=== PATIENT | female | born 1945 | race Caucasian/White ===

== ENCOUNTER → 2016-12-31 | Outpatient (CLI) | payer MEDICARE, BC ==
--- NOTE | 2017-01-01 08:24 | MM ---
Reason for exam: screening (asymptomatic). Last mammogram was performed 1 year and 2 months ago. History: Patient is postmenopausal. Took hormonal contraceptives for 12 years. Taking estrogen for 26 years. Physical Findings: A clinical breast exam by your physician is recommended on an annual basis and results should be correlated with mammographic findings. MG 3D Screening Mammo W/Cad Bilateral CC and MLO view(s) were taken. Prior study comparison: November 11, 2015, bilateral MG screening mammo w CAD. November 02, 2014, bilateral MG screening mammo w CAD. The breast tissue is heterogeneously dense. This may lower the sensitivity of mammography. There is no discrete abnormality. ASSESSMENT: Negative, BI-RAD 1 RECOMMENDATION: Routine screening mammogram of both breasts in 1 year.
== END | disposition home or self-care (01) ==
LOC: RADMAMWWP 09:58
PROVIDERS: ATTEND Obstetrics & Gynecology
DX: Z12.31 Encounter for screening mammogram for malignant neoplasm of breast (principal)
CPT/HCPCS: 77063; G0202

== ENCOUNTER → 2018-04-01 | Outpatient (CLI) | payer MEDICARE, BC ==
--- NOTE | 2018-04-01 16:32 | BD ---
EXAMINATION TYPE: MG DEXA axial skeleton. DATE OF EXAM: 04/01/2018 COMPARISON: NONE CLINICAL HISTORY: 72-year-old female screening for osteoporosis Height: 5 FT 4 IN Weight: 187 FRAX RISK QUESTIONS: Secondary Osteoporosis: RISK FACTORS HISTORY OF: Hip Fracture (Right/Left): When: Spine Fracture: When: History of Wrist Fracture: When: Active: YES Postmenopausal woman: PART HYST AGE 36 Take estrogen and/or progesterone medications: ESTRADIAL How lon YEARS MEDICATIONS: Thyroid Medications: SYNTHROID How Lon YEARS Additional Medications: SYNTHROID,MULTI, ESTRADIAL Additional History: EXAM MEASUREMENTS: Bone mineral densitometry was performed using the Uvinum System. Bone mineral density as measured about the Lumbar spine is: ----- L1-L4(G/cm2): 1.447 T Score Values are as follows: ----- L2: 2.0 ----- L3: 2.5 ----- L4: 2.2 ----- L1-L4: 2.2 Bone mineral density has: DECREASED -2.6 % since study of: 2013 Bone mineral density about the R hip (g/cm2): 0.921 Bone mineral density about the L hip (g/cm2): 0.930 T Score values are as follows: -----R Neck: -0.8 -----L Neck: -0.8 -----R Total: 0.0 -----L Total: -0.2 Bone mineral density has: DECREASED -1.4 % since study of: 2013 IMPRESSION: Normal (Values between +1 and -1 indicate normal bone mass). Consider repeating this study in 5 year s or sooner if there is some new clinical indication. NOTE: T-SCORE=SD OF THE YOUNG ADULT MEAN.
--- NOTE | 2018-04-02 10:58 | MM ---
Reason for exam: screening (asymptomatic). Last mammogram was performed 1 year and 3 months ago. History: Patient is postmenopausal. Took hormonal contraceptives for 12 years. Taking estrogen for 26 years. Physical Findings: A clinical breast exam by your physician is recommended on an annual basis and results should be correlated with mammographic findings. MG 3D Screening Mammo W/Cad Bilateral CC and MLO view(s) were taken. Prior study comparison: December 31, 2016, bilateral MG 3d screening mammo w/cad. November 11, 2015, bilateral MG screening mammo w CAD. The breast tissue is heterogeneously dense. This may lower the sensitivity of mammography. No suspicious abnormality. No significant changes when compared with prior studies. ASSESSMENT: Negative, BI-RAD 1 RECOMMENDATION: Routine screening mammogram of both breasts in 1 year.
== END | disposition home or self-care (01) ==
LOC: RADMAMWWP 08:27
PROVIDERS: ATTEND Obstetrics & Gynecology
DX: Z12.31 Encounter for screening mammogram for malignant neoplasm of breast (principal); Z13.820 Encounter for screening for osteoporosis
CPT/HCPCS: 77063; 77067; 77080

== ENCOUNTER → 2019-04-15 | Outpatient (CLI) | payer MEDICARE ==
--- NOTE | 2019-04-16 13:40 | MM ---
Reason for exam: screening (asymptomatic). Last mammogram was performed 1 year ago. History: Patient is postmenopausal. Took hormonal contraceptives for 12 years. Taking estrogen for 26 years. Physical Findings: A clinical breast exam by your physician is recommended on an annual basis and results should be correlated with mammographic findings. MG 3D Screening Mammo W/Cad Bilateral CC and MLO view(s) were taken. Prior study comparison: April 01, 2018, bilateral MG 3d screening mammo w/cad. December 31, 2016, bilateral MG 3d screening mammo w/cad. The breast tissue is heterogeneously dense. This may lower the sensitivity of mammography. No significant changes when compared with prior studies. ASSESSMENT: Benign, BI-RAD 2 RECOMMENDATION: Routine screening mammogram of both breasts in 1 year.
== END | disposition home or self-care (01) ==
LOC: RADMAMWWP 13:45
PROVIDERS: ATTEND Obstetrics & Gynecology
DX: Z12.31 Encounter for screening mammogram for malignant neoplasm of breast (principal)
CPT/HCPCS: 77063; 77067

== ENCOUNTER → 2020-05-25 | Outpatient (CLI) | payer MEDICARE ==
--- NOTE | 2020-05-26 11:12 | MM ---
Reason for exam: screening (asymptomatic). Last mammogram was performed 1 year and 1 month ago. History: Patient is postmenopausal. Took hormonal contraceptives for 12 years. Taking estrogen for 28 years. Physical Findings: A clinical breast exam by your physician is recommended on an annual basis and results should be correlated with mammographic findings. MG 3D Screening Mammo W/Cad Bilateral CC and MLO view(s) were taken. Prior study comparison: April 15, 2019, bilateral MG 3d screening mammo w/cad. April 01, 2018, bilateral MG 3d screening mammo w/cad. The breast tissue is heterogeneously dense. This may lower the sensitivity of mammography. There is no discrete abnormality. No significant changes when compared with prior studies. ASSESSMENT: Negative, BI-RAD 1 RECOMMENDATION: Routine screening mammogram of both breasts in 1 year.
== END | disposition home or self-care (01) ==
LOC: RADMAMWWP 09:43
PROVIDERS: ATTEND Obstetrics & Gynecology
DX: Z12.31 Encounter for screening mammogram for malignant neoplasm of breast (principal)
CPT/HCPCS: 77063; 77067

== ENCOUNTER → 2021-05-30 | Outpatient (CLI) | payer MEDICARE ==
--- NOTE | 2021-06-05 12:00 | MM ---
Reason for exam: screening (asymptomatic). Last mammogram was performed 1 year ago. History: Patient is postmenopausal. Took hormonal contraceptives for 12 years. Taking estrogen for 28 years. Physical Findings: A clinical breast exam by your physician is recommended on an annual basis and results should be correlated with mammographic findings. MG 3D Screening Mammo W/Cad Bilateral CC and MLO view(s) were taken. Prior study comparison: May 25, 2020, bilateral MG 3d screening mammo w/cad. April 15, 2019, bilateral MG 3d screening mammo w/cad. The breast tissue is heterogeneously dense. This may lower the sensitivity of mammography. ASSESSMENT: Benign, BI-RAD 2 RECOMMENDATION: Routine screening mammogram of both breasts in 1 year.
== END | disposition home or self-care (01) ==
LOC: RADMAMWWP 11:14
PROVIDERS: ATTEND Obstetrics & Gynecology
DX: Z12.31 Encounter for screening mammogram for malignant neoplasm of breast (principal); Z78.0 Asymptomatic menopausal state; Z79.3 Long term (current) use of hormonal contraceptives
CPT/HCPCS: 77063; 77067

== ENCOUNTER → 2022-03-28 | Outpatient (CLI) | payer MEDICARE ==
[2022-03-28 18:30] LABS: HCT 49.4 % (37.2-46.3); HGB 15.1 g/dL (12.0-15.0); MCHC 30.6 g/dL (32.0-37.0); MCV 88.2 fL (80.0-97.0); Mean Platelet Volume 10.1 fL (9.5-12.2); NRBC Per 100 WBC 0 /100 WBCS (0.0-0.0); Platelet Count 265 X 10*3/uL (140-440); RDW 13.5 % (11.5-14.5); WBC 9.14 X 10*3/uL (4.50-10.00)
[2022-03-28 20:17] LABS: ALT 19 U/L (8-44); AST 19 U/L (13-35); African American GFR (CKD) 56.9 (60.0-200.0); Albumin 4.6 g/dL (3.8-4.9); Albumin/Globulin Ratio 1.77 (1.60-3.17); Alkaline Phosphatase 91 U/L (41-126); Blood Urea Nitrogen 16.5 mg/dL (9.0-27.0); Calcium 9.8 mg/dL (8.7-10.3); Carbon Dioxide 25.2 mmol/L (20.0-27.5); Chloride 104 mmol/L (96-109); Chol/HDL Ratio 3.81 Ratio; Globulin 2.6 g/dL (1.6-3.3); Glucose 102 mg/dL (70-110); LDL Cholesterol,Calculated 118.3 mg/dL (0.0-131.0); Non-African American GFR(CKD) 49.1 (60.0-200.0); Potassium 4.8 mmol/L (3.5-5.5); Sodium 141 mmol/L (135-145); Total Bilirubin <0.15 mg/dL (0.30-1.20); Total Protein 7.2 g/dL (6.2-8.2)
== END | disposition home or self-care (01) ==
LOC: LABWHC1 10:02
PROVIDERS: ATTEND Family Medicine
DX: Z13.6 Encounter for screening for cardiovascular disorders (principal); E03.9 Hypothyroidism, unspecified; E55.9 Vitamin D deficiency, unspecified
CPT/HCPCS: 36415; 80053; 80061; 82306; 84439; 84443; 84481; 85027

== ENCOUNTER → 2022-06-13 | Outpatient (CLI) | payer MEDICARE ==
--- NOTE | 2022-06-14 10:39 | MM ---
Reason for Exam: Screening (asymptomatic). Last screening mammogram was performed 12 month(s) ago. Patient History: Menarche at age 13. First Full-Term at age 23. Left ovary removed at age 59. Hysterectomy at age 29. Postmenopausal. Currently using Estrogen, for 28 years. Patient used Hormonal Contraceptives for 12 years. Niece had breast cancer, age 30. Risk Values: Lalita 5 year model risk: 1.6%. NCI Lifetime model risk: 3.4%. Prior Study Comparison: 04/15/2019 Bilateral Screening Mammogram, [facility]. 05/25/2020 Bilateral Screening Mammogram, [facility]. 05/30/2021 Bilateral Screening Mammogram, [facility]. Tissue Density: The breast tissue is heterogeneously dense. This may lower the sensitivity of mammography. Analyzed By CAD. Overall Assessment: Negative, BI-RAD 1 Management: Screening Mammogram of both breasts in 1 year. Electronically signed and approved by: Hal Remy DO
== END | disposition home or self-care (01) ==
LOC: RADMAMWWP 16:16
PROVIDERS: ATTEND Obstetrics & Gynecology
DX: Z12.31 Encounter for screening mammogram for malignant neoplasm of breast (principal); Z78.0 Asymptomatic menopausal state; Z80.3 Family history of malignant neoplasm of breast
CPT/HCPCS: 77063; 77067

== ENCOUNTER 2022-10-15 18:49 | Inpatient (IN) | payer MEDICARE ==
[2022-10-15] MEDS ORDERED: ASPIRIN 81 MG PO STA (19:05)
[2022-10-15] MEDS ORDERED: NITROGLYCERIN OINT 1 INCH/GM PACKET TOPICAL STA (19:05)
--- NOTE | 2022-10-15 19:10 | ED ---
General Adult HPI - General Chief complaint: Chest Pain Stated complaint: Chest pain Time Seen by Provider: 10/15/22 18:55 Source: patient, RN notes reviewed, old records reviewed Mode of arrival: ambulatory Limitations: no limitations - History of Present Illness Initial comments: This is a 76-year-old female with advanced emergency department because yesterday she had chest pain that radiated to her back made her diaphoretic and very nauseated. Patient states that last about a half an hour so she went in and saw her family doctor and her troponin was elevated so he sent into the emergency department. Patient states since the pain subsided she has not had any further pain. Patient states currently she is not short of breath or has any chest pain. Patient states she has a strong family history with 2 brothers and a father who have had heart problems. Patient denies any diabetes high blood pressure or high cholesterol. Patient denies any smoking history. Patient denies any leg swelling or calf tenderness. Patient denies any lighthea dedness or dizziness. - Related Data Home Medications Medication Instructions Recorded Confirmed Levothyroxine Sodium [Synthroid] 100 mcg PO DAILY 10/15/22 10/15/22 Sertraline [Zoloft] 25 mg PO DAILY 10/15/22 10/15/22 estradioL 0.5 mg PO HS 10/15/22 10/15/22 Allergies Allergy/AdvReac Type Severity Reaction Status Date / Time No Known Allergies Allergy Verified 10/15/22 20:29 Review of Systems ROS Statement: Those systems with pertinent positive or pertinent negative responses have been documented in the HPI. ROS Other: All systems not noted in ROS Statement are negative. Past Medical History Past Medical History: No Reported History History of Any Multi-Drug Resistant Organisms: None Reported Past Surgical History: No Surgical Hx Reported Past Psychological History: No Psychological Hx Reported Smoking Status: Never smoker Past Alcohol Use History: Rare Past Drug Use History: None Reported General Exam - General Exam Comments Initial Comments: GENERAL: Patient is well-developed and well-nourished. Patient is nontoxic and well- hydrated and is in no acute distress. ENT: Neck is soft and supple. No significant lymphadenopathy is noted. Oropharynx is clear. Moist mucous membranes. Neck has full range of motion without eliciting any pain. EYES: The sclera were anicteric and conjunctiva were pink and moist. Extraocular movements were intact and pupils were equal round and reactive to light. Eyelids were unremarkable. PULMONARY: Unlabored respirations. Good breath sounds bilaterally. No audible rales rhonchi or wheezing was noted. CARDIOVASCULAR: There is a regular rate and rhythm without any murmurs gallops or rubs. ABDOMEN: Soft and nontender with normal bowel sounds. SKIN: Skin is clear with no lesions or rashes and otherwise unremarkable. NEUROLOGIC: Patient is alert and oriented x3. Cranial nerves II through XII are grossly intact. Motor and sensory are also intact. Normal speech, volume and content. Symmetrical smile. MUSCULOSKELETAL: Normal extremities with adequate strength and full range of motion. No lower extremity swelling or edema. No calf tenderness. LYMPHATICS: No significant lymphadenopathy is noted PSYCHIATRIC: Normal psychiatric evaluation. Limitations: no limitations Course Vital Signs 10/15/22 18:53 Temperature 97.5 F L Pulse Rate 106 H Respiratory 18 Rate Blood Pressure 134/80 O2 Sat by Pulse 96 Oximetry Medical Decision Making - Medical Decision Making EKG was interpreted by me it shows a sinus rhythm at 94 bpm WY interval 171 QRS is 79 Q-T intervals 344 QTC is 396. Patient's EKG showed some slight ST segment depression in V1 and V2 and V3. I interpreted the chest x-ray. I saw no acute normalities. There is no infiltrate or pleural effusion. Patient remained chest pain-free throughout her stay however her troponin was mildly elevated so I will be keeping the patient in the hospital. I spoke with sounds physician's he agreed to admit the patient admitted the patient wrote admitting orders and continue troponin checks throughout the night. I consult to cardiology. Because the unstable angina picture and elevated troponin to start the patient on heparin. I continue the heparin Nitropaste and aspirin on the floor. - Lab Data Result diagrams: 10/15/22 19:24 10/15/22 19:24 Lab Results 10/15/22 10/15/22 10/15/22 Range/Units 19:24 19:24 19:24 WBC 9.4 (3.8-10.6) k/uL RBC 5.38 (3.80-5.40) m/uL Hgb 15.3 (11.4-16.0) gm/dL Hct 45.6 (34.0-46.0) % MCV 84.8 (80.0-100.0) fL MCH 28.5 (25.0-35.0) pg MCHC 33.6 (31.0-37.0) g/dL RDW 12.9 (11.5-15.5) % Plt Count 256 (150-450) k/uL MPV 7.9 Neutrophils % 58 % Lymphocytes % 33 % Monocytes % 3 % Eosinophils % 3 % Basophils % 1 % Neutrophils # 5.5 (1.3-7.7) k/uL Lymphocytes # 3.1 (1.0-4.8) k/uL Monocytes # 0.3 (0-1.0) k/uL Eosinophils # 0.3 (0-0.7) k/uL Basophils # 0.1 (0-0.2) k/uL PT 9.9 (9.0-12.0) sec INR 0.9 (<1.2) APTT 24.4 (22.0-30.0) sec Sodium 139 (137-145) mmol/L Potassium 3.7 (3.5-5.1) mmol/L Chloride 105 (98-107) mmol/L Carbon Dioxide 27 (22-30) mmol/L Anion Gap 7 mmol/L BUN 18 H (7-17) mg/dL Creatinine 0.95 (0.52-1.04) mg/dL Est GFR (CKD-EPI)AfAm 68 (>60 ml/min/1.73 sqM) Est GFR (CKD-EPI)NonAf 59 (>60 ml/min/1.73 sqM) Glucose 139 H (74-99) mg/dL Calcium 9.6 (8.4-10.2) mg/dL Magnesium 1.7 (1.6-2.3) mg/dL Total Bilirubin 0.4 (0.2-1.3) mg/dL AST 26 (14-36) U/L ALT 21 (4-34) U/L Alkaline Phosphatase 74 (38-126) U/L Troponin I (0.000-0.034) ng/mL Total Protein 6.9 (6.3-8.2) g/dL Albumin 4.3 (3.5-5.0) g/dL 10/15/22 Range/Units 19:24 WBC (3.8-10.6) k/uL RBC (3.80-5.40) m/uL Hgb (11.4-16.0) gm/dL Hct (34.0-46.0) % MCV (80.0-100.0) fL MCH (25.0-35.0) pg MCHC (31.0-37.0) g/dL RDW (11.5-15.5) % Plt Count (150-450) k/uL MPV Neutrophils % % Lymphocytes % % Monocytes % % Eosinophils % % Basophils % % Neutrophils # (1.3-7.7) k/uL Lymphocytes # (1.0-4.8) k/uL Monocytes # (0-1.0) k/uL Eosinophils # (0-0.7) k/uL Basophils # (0-0.2) k/uL PT (9.0-12.0) sec INR (<1.2) APTT (22.0-30.0) sec Sodium (137-145) mmol/L Potassium (3.5-5.1) mmol/L Chloride (98-107) mmol/L Carbon Dioxide (22-30) mmol/L Anion Gap mmol/L BUN (7-17) mg/dL Creatinine (0.52-1.04) mg/dL Est GFR (CKD-EPI)AfAm (>60 ml/min/1.73 sqM) Est GFR (CKD-EPI)NonAf (>60 ml/min/1.73 sqM) Glucose (74-99) mg/dL Calcium (8.4-10.2) mg/dL Magnesium (1.6-2.3) mg/dL Total Bilirubin (0.2-1.3) mg/dL AST (14-36) U/L ALT (4-34) U/L Alkaline Phosphatase (38-126) U/L Troponin I 0.098 H* (0.000-0.034) ng/mL Total Protein (6.3-8.2) g/dL Albumin (3.5-5.0) g/dL Critical Care Time Critical Care Time: Yes Total Critical Care Time: 35 Disposition Clinical Impression: Unstable angina Disposition: ADMITTED IP TO THIS [facility] Referrals: None,Stated [Primary Care Provider] - 1-2 days Time of Disposition: 20:34
[2022-10-15 19:38] LABS: Basophils # (A) 0.1 k/uL (0-0.2); Basophils % (A) 1 %; Eosinophils # (A) 0.3 k/uL (0-0.7); Eosinophils % (A) 3 %; HCT 45.6 % (34.0-46.0); HGB 15.3 gm/dL (11.4-16.0); Lymphocytes # (A) 3.1 k/uL (1.0-4.8); Lymphocytes % (A) 33 %; MCH 28.5 pg (25.0-35.0); MCHC 33.6 g/dL (31.0-37.0); MCV 84.8 fL (80.0-100.0); Mean Platelet Volume 7.9; Monocytes # (A) 0.3 k/uL (0-1.0); Monocytes % (A) 3 %; Neutrophils # (A) 5.5 k/uL (1.3-7.7); Neutrophils % (A) 58 %; Platelet Count 256 k/uL (150-450); RBC 5.38 m/uL (3.80-5.40); RDW 12.9 % (11.5-15.5); WBC 9.4 k/uL (3.8-10.6)
[2022-10-15 19:47] LABS: INR 0.9 (<1.2); Partial Thromboplastin Time 24.4 sec (22.0-30.0); Prothrombin Time 9.9 sec (9.0-12.0)
[2022-10-15 19:51] LABS: Albumin 4.3 g/dL (3.5-5.0); Calcium 9.6 mg/dL (8.4-10.2); Magnesium 1.7 mg/dL (1.6-2.3); Potassium 3.7 mmol/L (3.5-5.1); Total Bilirubin 0.4 mg/dL (0.2-1.3); Total Protein 6.9 g/dL (6.3-8.2)
--- NOTE | 2022-10-15 20:23 | XR ---
EXAMINATION TYPE: XR chest 2V DATE OF EXAM: 10/15/2022 COMPARISON: NONE HISTORY: Chest pain TECHNIQUE: 2 view FINDINGS: Heart and mediastinum are normal. Lungs are clear. Diaphragm is normal. Bony thorax appears normal. IMPRESSION: Normal chest.
[2022-10-15] MEDS ORDERED: NITROGLYCERIN SL TABS 0.4 MG TAB SUBLINGUAL PRN (20:34)
[2022-10-15] MEDS ORDERED: HEPARIN SOD,PORK IN 0.45% NACL 25,000 UNIT in 0.45% NACL 1 250ML.BAG IV SCH (20:45)
[2022-10-16] MEDS ORDERED: METOPROLOL TARTRATE 50 MG TAB PO STA ×2 (01:35→01:47)
--- NOTE | 2022-10-16 01:36 | P.HPIM ---
History of Present Illness H&P Date: 10/15/22 The patient is 76-year-old female with a PMH of hypothyroidism who presents to the emergency room with complaints of chest pain and shortness of breath. The patient reports that she was in her usual state of health until yesterday evening at dinnertime when she suddenly developed a severe substernal chest discomfort, 10 out of 10, pressure-like, with associated diaphoresis, nausea, shortness of breath, and a single episode of vomiting. The pain persisted for around 45 minutes and then gradually resolved. The patient subsequently went to her PCPs office earlier today where an EKG was performed and the patient was sent for a troponin lab draw. The patient was subsequently contacted at her home by her PCP to inform her that the troponin was elevated and that she needs to go to the emergency room. The patient states that she has not had recurrence of her pain since the episode yesterday. She denied any prior history of heart disease or chest discomfort. Reports a significant family history of heart disease with multiple males dying early heart disease. At time of interview, she reports feeling at her baseline. Patient denied history of tobacco use. Laboratory evaluation revealed a troponin of 0.098, down from 0.127 performed as an outpatient earlier today. EKG had revealed sinus rhythm at 94 bpm with poor R-wave progression, as well as ST segment depression noted in leads V2 to V3. Chest x-ray was unremarkable. Review of systems: Pertinent positives and negatives as discussed in HPI, a complete review of systems was performed and all other systems are negative. Physical examination: General: non toxic, no distress, appears at stated age, obese Derm: no unusual rashes/lesions, warm Head: atraumatic, normocephalic, symmetric Eyes: EOMI, no lid lag, anicteric sclera, pupils equal round reactive to light ENT: Nose and ears atraumatic Neck: No cervical lymphadenopathy, trachea midline, supple Mouth: no lip lesion, mucus membranes moist Cardiovascular: S1S2 reg, no murmur, positive dorsalis pedis pulse bilateral, no edema Lungs: CTA bilateral, no rhonchi, no rales, no accessory muscle use Abdominal: soft, nontender to palpation, no guarding Ext: muscle strength 5 out of 5 in all 4 extremities grossly, no gross muscle atrophy, no contractures, Neuro: CN II-XI grossly intact, no gross focal neuro deficits Psych: Alert, oriented, appropriate affect Assessment/plan Non-ST elevation NE -Continue with heparin infusion -Aspirin, statin -Beta lasha -Trend troponin -Cardiac monitoring -Cardiology consulted -Follow-up lipid panels and A1c -Nitro when necessary DVT prophylaxis -Heparin infusion The patient is admitted with an anticipated greater than 2 midnight stay for evaluation of non-ST elevation NE CODE STATUS: Full Code Discussed with: Patient Anticipated discharge date: 2-[address]: Home Past Medical History Past Medical History: No Reported History History of Any Multi-Drug Resistant Organisms: None Reported Past Surgical History: No Surgical Hx Reported Past Psychological History: No Psychological Hx Reported Smoking Status: Never smoker Past Alcohol Use History: Rare Past Drug Use History: None Reported - Past Family History Brother(s) Family Medical History: Coronary Artery Disease (CAD) Medications and Allergies Home Medications Medication Instructions Recorded Confirmed Type Levothyroxine Sodium [Synthroid] 100 mcg PO DAILY 10/15/22 10/15/22 History Sertraline [Zoloft] 25 mg PO DAILY 10/15/22 10/15/22 History estradioL 0.5 mg PO HS 10/15/22 10/15/22 History Allergies Allergy/AdvReac Type Severity Reaction Status Date / Time No Known Allergies Allergy Verified 10/15/22 20:29 Physical Exam Vitals: Vital Signs Temp Pulse Resp BP Pulse Ox 10/15/22 18:53 97.5 F L 106 H 18 134/80 96 Intake and Output 10/15/22 10/15/22 10/15/22 06:59 14:59 22:59 Other: Weight 81.647 kg Results CBC & Chem 7: 10/15/22 19:24 10/15/22 19:24 Labs: Abnormal Lab Results - Last 24 Hours (Table) 10/15/22 10/15/22 Range/Units 19:24 19:24 BUN 18 H (7-17) mg/dL Glucose 139 H (74-99) mg/dL Troponin I 0.098 H* (0.000-0.034) ng/mL
[2022-10-16 05:13] LABS: Partial Thromboplastin Time 37.7 sec (22.0-30.0); Prothrombin Time 10.4 sec (9.0-12.0)
[2022-10-16] MEDS: ATORVASTATIN 80 MG TAB PO SCH ×2 (07:19→20:10)
[2022-10-16] MEDS: NITROGLYCERIN OINT 1 INCH/GM PACKET TOPICAL SCH ×3 (07:19→14:44)
[2022-10-16] MEDS ORDERED: ALPRAZolam 0.5 MG TAB PO PRN (08:46)
[2022-10-16] MEDS ORDERED: ALPRAZolam 0.25 MG TAB PO PRN (08:46)
[2022-10-16] MEDS ORDERED: ASPIRIN 325 MG TAB PO SCH (09:00)
[2022-10-16] MEDS: SERTRALINE 50 MG TAB PO SCH (09:14)
[2022-10-16] MEDS: LEVOTHYROXINE 100 MCG TAB PO SCH (09:14)
[2022-10-16 09:40] LABS: Glucose,Whole Blood 116 mg/dL (70-110)
[2022-10-16 10:18] LABS: Chol/HDL Ratio 3.93 Ratio; LDL Cholesterol,Calculated 110.5 mg/dL (0.0-131.0)
--- NOTE | 2022-10-16 10:29 | CA ---
Transthoracic Echo Report Name: Aubrie Grant Age: 76 Gender: F : 1945 Exam Date: 10/16/2022 08:15 Exam Location: [facility] Ht (in): 65 Wt (lb): 180 Ordering Physician: Lashonda Kevin Attending/Referring Phys: Manager Of Product Claudine Forbes RDCS Procedure CPT: Indications: chest pain, sob, elevated troponin Cardiac Hx: Technical Quality: Very technically difficult study Contrast 1: Lumason Total Dose (mL): 4 Contrast 2: Total Dose (mL): MEASUREMENTS (Male / Female) Normal Values 2D ECHO LV Diastolic Diameter PLAX 3.5 cm 4.2 - 5.9 / 3.9 - 5.3 cm LV Systolic Diameter PLAX 2.9 cm IVS Diastolic Thickness 1.1 cm 0.6 - 1.0 / 0.6 - 0.9 cm LVPW Diastolic Thickness 1.6 cm 0.6 - 1.0 / 0.6 - 0.9 cm LV Relative Wall Thickness 0.8 RV Internal Dim ED PLAX 2.4 cm M-MODE Aortic Root Diameter MM 3.0 cm LA Systolic Diameter MM 2.7 cm LA Ao Ratio MM 0.9 MV E Point Septal Separation 0.9 cm AV Cusp Separation MM 2.0 cm DOPPLER MV Area PHT 2.1 cm??? Mitral E Point Velocity 44.4 cm/s Mitral A Point Velocity 72.1 cm/s Mitral E to A Ratio 0.6 MV Deceleration Time 363.3 ms MV E' Velocity 4.5 cm/s Mitral E to MV E' Ratio 9.9 FINDINGS Left Ventricle Mildly increased septal wall thickness.left ventricular ejection fraction is estimated at 55%. Right Ventricle Normal right ventricular size and function. Right ventricular systolic pressure within normal limits. Right Atrium Normal right atrial size. Left Atrium Normal left atrial size. Mitral Valve Structurally normal mitral valve. Mild mitral regurgitation. Aortic Valve Aortic valve not well visualized. Tricuspid Valve Structurally normal tricuspid valve. Mild tricuspid regurgitation. Pulmonic Valve Pulmonic valve not well visualized. Pericardium Echo free space anterior to the right ventricle likely represents a fat pad. Aorta Normal size aortic root and proximal ascending aorta. CONCLUSIONS Left ventricular ejection fraction 55% Mild mitral regurgitation Mild tricuspid regurgitation No significantly elevated RVSP No pericardial effusion Previewed by: Dr. Enrique De Leon DO (Electronically Signed) Final Date: 16 October 2022 10:28
[2022-10-16] MEDS ORDERED: IV FLUID CONTINUATION 900 ML IV ONE (10:47)
[2022-10-16] MEDS: MIDAZOLAM 2 MG/2 ML VIAL IV ONE ×2 (11:08→11:16)
[2022-10-16] MEDS ORDERED: HEPARIN SODIUM 1,000 UN/ML (10ML VL) ONE (11:13)
[2022-10-16] MEDS ORDERED: LIDOCAINE 1% INJ 10MG/ML (30 ML VIAL-PF) SQ ONE ×2 (11:16→11:17)
[2022-10-16] MEDS ORDERED: VERAPAMIL SYRINGE (5 MG/10 ML) INTRAARTER ONE (11:23)
[2022-10-16] MEDS ORDERED: HYDROmorphone 0.5 MG/0.5 ML SYRINGE IVP ONE ×4 (11:25→12:34)
[2022-10-16] MEDS: HEPARIN SODIUM 1,000 UN/ML (10ML VL) IV ONE ×3 (11:28→12:29)
--- NOTE | 2022-10-16 11:31 | P.CRDCN ---
History of Present Illness History of present illness: This is a 76 year old female with a past medical history of hypothyroidism, family history of coronary artery disease. She does not follow with a continuous improvement lead. We are consulted for chest pain and abnormal troponin. She presents to the ER with complaints of chest pain. Patient states yesterday evening she had symptoms of chest pressure in the center of her chest radiating to her back. Rates it 10/10, intense pressure. She had associated shortness of breath, nausea, vomiting episode and diaphoresis. She took an aspirin, no relief. Within 1 hour her symptoms resolved. She went to see her PCP and was told to go to the emergency department secondary to elevated troponins. She is currently chest pain free. Denies any shortness of breath, lightheadedness, dizziness or palpitations. She denies any history of CAD, DC, stroke, diabetes, hypertension, dyslipidemia. Family history includes her father had CABG in his 40s and stenting, other brother also had an DC, Father had an DC in his 60s. She denies tobacco use. DIAGNOSTICS * EKG reveals sinus rhythm, HR 94, mild ST depression in inferior and lateral leads * Telemetry tracings indicate sinus rhythm * Echocardiogram revealed EF 55%, mild mitral regurgitation, mild tricuspid regurgitation * Chest xray no acute cardiopulmonary process * Laboratory reviewed, sodium 139, potassium 3.7, BUN 18, serum crit 0.9, magnesium 1.7, troponin 0.09, 0.10, 2.09, TSH within normal limits, Triglycerides 141, cholesterol 186, LDL 110, HDL 47, CBC unremarkable * Current home medications include Synthroid, zoloft, estradiol REVIEW OF SYSTEMS At the time of my exam: CONSTITUTIONAL: Denies fever or chills. CARDIOVASCULAR: + chest pain, +shortness of breath, Denies orthopnea, PND or palpitations. RESPIRATORY: Denies cough. GASTROINTESTINAL: Denies abdominal pain, diarrhea, constipation, +nausea +vomiting. MUSCULOSKELETAL: Denies myalgias. NEUROLOGIC: Denies numbness, tingling, headacbe or weakness. ENDOCRINE: Denies fatigue, weight change, polydipsia or polyurina. GENITOURINARY: Denies burning, hematuria or urgency with micturation. HEMATOLOGIC: Denies history of anemia or bleeding. PHYSICAL EXAMINATION Blood pressure 119/93, heart rate 87, afebrile, oxygen saturation 96% on room air CONSTITUTIONAL: No apparent distress. HEENT: Head is normocephalic. Pupils are equal, round. Sclerae anicteric. Mucous membranes of the mouth are moist. No JVD. No carotid bruit. CHEST EXAMINATION: Lungs are clear to auscultation. No chest wall tenderness is noted on palpation or with deep breathing. HEART EXAMINATION: Regular rate and rhythm. S1, S2 heard. No murmurs, gallops or rub. ABDOMEN: Soft, nontender. Positive bowel sounds. EXTREMITIES: 2+ peripheral pulses, no lower extremity edema and no calf tenderness. NEUROLOGIC EXAMINATION: Patient is awake, alert and oriented x3. ASSESSMENT NSTEMI History of hypothyroidism Family history of coronary artery disease PLAN Echocardiogram reviewed Continue IV Heparin, aspirin, statin Plan for cardiac catheterization today with Dr. Rowe, patient is agreeable I have discussed the risks, benefits and alternative therapies for the above- mentioned procedure and for both sedation/analgesia as well as necessary blood product administration, if indicated, as they pertain to this patient. The patient has indicated understanding and acceptance of the risks and procedures discussed. Questions have been answered appropriately and she is agreeable to move forward with the above-stated procedure. Further recommendations based on clinical course Nurse practitioner note has been reviewed by physician. Signing provider agrees with the documented findings, assessment, and plan of care. Past Medical History Past Medical History: No Reported History History of Any Multi-Drug Resistant Organisms: None Reported Past Surgical History: No Surgical Hx Reported Past Psychological History: No Psychological Hx Reported Smoking Status: Never smoker Past Alcohol Use History: Rare Past Drug Use History: None Reported - Past Family History Brother(s) Family Medical History: Coronary Artery Disease (CAD) Medications and Allergies Home Medications Medication Instructions Recorded Confirmed Type Levothyroxine Sodium [Synthroid] 100 mcg PO DAILY 10/15/22 10/15/22 History Sertraline [Zoloft] 25 mg PO DAILY 10/15/22 10/15/22 History estradioL 0.5 mg PO HS 10/15/22 10/15/22 History Allergies Allergy/AdvReac Type Severity Reaction Status Date / Time No Known Allergies Allergy Verified 10/15/22 20:29 Physical Exam Vitals: Vital Signs Temp Pulse Resp BP Pulse Ox 10/16/22 03:28 62 19 99 10/15/22 18:53 97.5 F L 106 H 18 134/80 96 Intake and Output 10/15/22 10/16/22 10/16/22 22:59 06:59 14:59 Other: Weight 81.647 kg Results 10/15/22 19:24 10/15/22 19:24 Cardiac Enzymes 10/15/22 10/15/22 10/15/22 Range/Units 19:24 19:24 22:39 AST 26 (14-36) U/L Troponin I 0.098 H* 0.108 H* (0.000-0.034) ng/mL 10/16/22 Range/Units 01:16 AST (14-36) U/L Troponin I 0.096 H* (0.000-0.034) ng/mL Coagulation 10/15/22 10/16/22 Range/Units 19:24 04:39 PT 9.9 10.4 (9.0-12.0) sec APTT 24.4 37.7 H (22.0-30.0) sec CBC 10/15/22 Range/Units 19:24 WBC 9.4 (3.8-10.6) k/uL RBC 5.38 (3.80-5.40) m/uL Hgb 15.3 (11.4-16.0) gm/dL Hct 45.6 (34.0-46.0) % Plt Count 256 (150-450) k/uL Comprehensive Metabolic Panel 10/15/22 Range/Units 19:24 Sodium 139 (137-145) mmol/L Potassium 3.7 (3.5-5.1) mmol/L Chloride 105 (98-107) mmol/L Carbon Dioxide 27 (22-30) mmol/L BUN 18 H (7-17) mg/dL Creatinine 0.95 (0.52-1.04) mg/dL Glucose 139 H (74-99) mg/dL Calcium 9.6 (8.4-10.2) mg/dL AST 26 (14-36) U/L ALT 21 (4-34) U/L Alkaline Phosphatase 74 (38-126) U/L Total Protein 6.9 (6.3-8.2) g/dL Albumin 4.3 (3.5-5.0) g/dL Current Medications Generic Name Dose Route Start Last Admin Trade Name Freq PRN Reason Stop Dose Admin Aspirin 325 mg 10/16/22 09:00 Aspirin 325 Mg Tab PO DAILY [facility] Atorvastatin Calcium 80 mg 10/16/22 01:34 10/16/22 07:19 Atorvastatin 80 Mg Tab PO Not Given HS [facility] Estradiol 0.5 mg 10/15/22 21:00 10/16/22 07:19 Estradiol 0.5 Mg Tab PO Not Given HS [facility] Heparin Sodium/Sodium Chloride 250 mls @ 9.798 mls/hr 10/15/22 20:45 10/15/22 22:35 25,000 unit/ Sodium Chloride IV 12 units/kg/hr .Q24H [place] 9.798 mls/hr Administration Protocol 12 UNITS/KG/HR Levothyroxine Sodium 100 mcg 10/16/22 06:30 Levothyroxine 100 Mcg Tab PO DAILY@0630 [facility] Nitroglycerin 0.4 mg 10/15/22 20:34 Nitroglycerin Sl Tabs 0.4 Mg Tab SUBLINGUAL Q5M PRN Chest Pain Nitroglycerin 1 inch 10/16/22 00:00 10/16/22 07:19 Nitroglycerin Oint 1 Inch/Gm Packet TOPICAL Not Given Q6HR [facility] Sertraline HCl 25 mg 10/16/22 09:00 Sertraline 50 Mg Tab PO DAILY [facility] Intake and Output 10/15/22 10/16/22 10/16/22 22:59 06:59 14:59 Other: Weight 81.647 kg 10/15/22 19:24 10/15/22 19:24
--- NOTE | 2022-10-16 11:45 | P.PN ---
Subjective Progress Note Date: 10/16/22 Hospital course: Patient is a very pleasant 76-year-old female with a past medical history of hypothyroidism. She presented to the emergency department with a chief complaint of chest pain/pressure and shortness of breath. Patient reports that this began on Saturday and initially began with the sudden onset of severe nausea stating it was like the worst case of morning sickness 10 followed by one episode of emesis consisting strictly bile followed by severe pain/pressure to her midsternal chest radiating into her back accompanied by diaphoresis. Patient reports she took an aspirin and rested and pain seemed to go away but had consistently been waxing and waning over the past couple days. Patient underwent full evaluation in the emergency department. CBC, coags, and CMP s howing no significant abnormalities. Troponin elevated at 0.098. EKG showing sinus rhythm and [address] depression in inferior and lateral leads. Chest x-ray negative for acute cardiopulmonary process. Patient was started on IV heparin infusion and admitted under our services with consultation to cardiology. Troponins trended overnight resulting at 0.098, 0.108, and 0.096. Physical exam: Patient seen and fully evaluated at the bedside this morning. Patient currently reports a soreness to her chest but reports the chest pain and shortness of breath she was previously experiencing has resolved. Patient remains on heparin infusion and preparing to be taken down for cardiac catheterization. Vital signs reviewed and stable. General: Nontoxic, no distress and appears stated age. Derm: Skin warm and dry, normal coloration for ethnicity. Head: Atraumatic, normocephalic and symmetric. Eyes: EOMs intact, no lid lag, and anicteric sclera Mouth: no lip lesions, mucus membranes moist Cardiovascular: regular rate and rhythm with normal S1S2 soft systolic murmur, positive posterior tibial pulses bilaterally, and cap refill < 2 seconds. Lungs: Respirations even, regular, and unlabored on room air. Lungs CTA bilaterally, no rhonchi, no rales, no wheezing, and no accessory muscle usage. Abdominal: soft, nontender to palpation, no guarding, no appreciable organomeg jazmin Ext: ROM intact. No gross muscle atrophy, no edema, no contractures Neuro: Speech clear, face symmetrical and CN II-XII grossly intact with no noted focal neuro deficits Psych: Alert and oriented to person, place, time, and situation. Appropriate and pleasant affect. Assessment and Plan of Care: NSTEMI -Cardiology following, patient to undergo cardiac catheterization later today -Telemetry monitoring -Continue heparin infusion -May resume Cardiac diet upon return from cardiac cath -Continue Aspirin, atorvastatin, losartan and metoprolol -Lipid profile with a.m. labs. -Echocardiogram revealing EF of 55% with mild mitral and tricuspid regurgitation. Hypothyroidism -Continue daily medication regimen with levothyroxine. CODE STATUS: Full code DVT prophylaxis: Heparin Discussed with: Patient, patient's , and RN Anticipated discharge date: Clinical course to determine Anticipated discharge place: Home A total of 38 minutes was spent on the care of this complex patient more than 50% of the time was spent in counseling and care coordination. I reviewed the documentation as provided by the KAYLEE above, who is the original author of this note. I agree with the documented assessment and plan, with the following changes: none Objective - Vital Signs Vital signs: Vital Signs Temp 97.5 F L 10/15/22 18:53 Pulse 85 10/16/22 08:00 Resp 18 10/16/22 08:00 BP 105/69 10/16/22 08:00 Pulse Ox 95 10/16/22 08:00 FiO2 Intake & Output 10/15/22 10/16/22 10/16/22 18:59 06:59 18:59 Weight 81.647 kg - Labs CBC & Chem 7: 10/15/22 19:24 10/15/22 19:24 Labs: Abnormal Lab Results - Last 24 Hours (Table) 10/15/22 10/15/22 10/15/22 Range/Units 19:24 19:24 22:39 APTT (22.0-30.0) sec BUN 18 H (7-17) mg/dL Glucose 139 H (74-99) mg/dL Troponin I 0.098 H* 0.108 H* (0.000-0.034) ng/mL 10/16/22 10/16/22 Range/Units 01:16 04:39 APTT 37.7 H (22.0-30.0) sec BUN (7-17) mg/dL Glucose (74-99) mg/dL Troponin I 0.096 H* (0.000-0.034) ng/mL
[2022-10-16] MEDS ORDERED: IOPAMIDOL-370 100ML BTL INJ ONE ×2 (12:02→12:22)
[2022-10-16] MEDS ORDERED: ONDANSETRON 4 MG/2 ML VIAL ONE (12:05)
[2022-10-16] MEDS ORDERED: ONDANSETRON 4 MG/2 ML VIAL IVP ONE (12:06)
[2022-10-16] MEDS ORDERED: NITROGLYCERIN 1000MCG/10ML SYRINGE INTRACORON ONE (12:14)
[2022-10-16] MEDS ORDERED: METOPROLOL TARTRATE 5 MG/5 ML VIAL IVP ONE ×2 (12:32→12:37)
[2022-10-16] MEDS ORDERED: IOPAMIDOL-370 125ML BTL INJ ONE (12:37)
[2022-10-16] MEDS ORDERED: CLOPIDOGREL 75 MG TAB ONE (12:39)
[2022-10-16] MEDS ORDERED: CLOPIDOGREL 75 MG TAB PO ONE (12:40)
[2022-10-16] MEDS ORDERED: SODIUM CHLORIDE 0.9% 1,000 ML IV STA (12:42)
[2022-10-16] MEDS ORDERED: ZOLPIDEM 5 MG TAB PO PRN (12:43)
[2022-10-16] MEDS ORDERED: RX INFO: IV CONTRAST WAS GIVEN 1 EACH MISC MISCELLANE PRN (12:43)
[2022-10-16] MEDS ORDERED: MAG HYDROX/AL HYDROX/SIMETH 30 ML CUP PO PRN (12:43)
[2022-10-16] MEDS ORDERED: ATROPINE SULFATE 0.1 MG/ML 10ML SYRINGE IV PRN (12:43)
--- NOTE | 2022-10-16 13:55 | CC ---
CARDIAC CATHETERIZATION REPORT DATE OF SERVICE: 10/15/2022. PROCEDURES PERFORMED: 1. Left heart catheterization and coronary angiography. 2. Percutaneous transluminal coronary angioplasty and stenting of mid left anterior descending with a drug-eluting stent. 3. Percutaneous transluminal coronary angioplasty and stenting of proximal major diagonal branch with a drug-eluting stent. PERFORMED BY: Dr. Trudy Rowe. Moderate conscious sedation time was 1 hour and 20 minutes. The patient was administered Versed and Dilaudid. Oxygen saturation, hemodynamics, and EKG were monitored closely. CLINICAL INFORMATION: Ms. Aubrie Grant is a 76-year-old lady with a history of hypothyroidism, who has not seen a primary care physician recently. She came into the hospital with episode of chest pain and had troponin elevation suggestive of [id number] without significant EKG changes. She was seen and evaluated by Dr. Higgins, who advised cardiac catheterization. I saw the patient in the catheterization lab. Discussed with her the rationale, risks, benefits and options. She understood all details and wished to proceed with the procedure. PROCEDURE NOTE: Under local anesthesia and strict aseptic precautions, a 6-Greek introducer was placed in the right radial artery. Using a JL3.5 and JR4 catheters, I performed coronary angiography, and same right catheter was used to check LV pressure, but LV-gram was not performed. Following this, I performed stenting of LAD and also major diagonal branch because of significant lesion. The patient also had a circumflex lesion, which will be addressed later on. Following the PCI procedure, the sheath was taken out, and a TR band was applied as per protocol with saturation in the fingers of the right hand of 97%. The patient received intravenous heparin of about 6000 units. ACT was kept between 250 and 300. Initial one was 281, the end of the procedure was 253. She also received 600 mg of Plavix. CARDIAC CATHETERIZATION FINDINGS: The left ventricular end-diastolic pressure was about 10 mmHg without any gradient across aortic valve. CORONARY ANGIOGRAPHY FINDINGS: RIGHT CORONARY ARTERY: Large dominant vessel. Proximal portion with a 35% lesion. It is very tortuous and distally bifurcates into large PDA and PLV, both of which supply a sizable amount of myocardium. Proximal RCA has about a 35% plaque, but the rest of the RCA looks very good and distally bifurcates into 2 good-sized PDA and PLV branches. No other significant disease. LEFT MAIN CORONARY ARTERY: Short, patent vessel, free of significant disease, bifurcates into LAD and circumflex. LEFT ANTERIOR DESCENDING CORONARY ARTERY: Good-caliber vessel, extends along the anterior wall, proximal 35% lesion, gives off a good-sized diagonal branch that has a 95% stenosis in the body and a 50% in the ostium. It bifurcates into 2 branches. It is about a 2.25-caliber vessel. LAD after the diagonal branch is highly diseased as a long area of disease, and from the diseased area comes off a septal branch, and there is a focal 95% stenosis in the LAD at the origin of the septal branch. Beyond the long area of disease, the caliber improves and vessel runs all the way to the apex and supplies a sizable amount of myocardium. This is a large distribution LAD and has significant disease in the proximal portion and the diagonal branch and mid LAD long area of disease. LEFT POSTERIOR CIRCUMFLEX CORONARY ARTERY: Nondominant vessel, gives off a high first obtuse marginal branch that has an eccentric 75% to 80% lesion and very tortuous beyond the lesion, and then there is an AV groove branch that has a 60% lesion, runs into the AV groove and a left atrial circumflex branch. Circumflex marginal, therefore, has 80% proximal lesion as it comes off from the main circumflex coronary artery, and this is a nondominant circumflex. Left ventriculogram was not performed. FINAL IMPRESSION: This patient has a right-dominant system, normal filling pressures, and no gradient across aortic valve. Left anterior descending has a long area of disease with a 95% mid lesion, and diagonal also has a 95% lesion in the body of the vessel. Circumflex has 85% in the circumflex marginal. Right coronary artery has about a 35% proximal plaque. RECOMMENDATIONS: I recommended intervention of the LAD and proceeded to perform this in the same setting. PCI PROCEDURE DETAILS: Initially, I tried a JL4, then switched to a JL3.5 guide catheter and a Runthrough wire. Wire was kept distally in the LAD. Predilatation was performed with a 2.5- caliber, 12-mm NC Trek balloon, and I then tried to advance a long stent, but I had difficulty. I then switched over to a 20-mm long, 3.0-caliber NC Trek balloon. With this, I predilated the entire segment, and then I deployed a 33-mm long, 3.5- caliber Xience stent that started off right after the diagonal branch and extended into the lesion almost beyond the mid LAD area. Excellent angiographic result was achieved, but the patient had a septal branch that was totally occluded, and this caused some chest pain without EKG changes. I then turned my attention to the diagonal branch. The same wire was advanced and positioned in the diagonal vessel. Using a 2.25-caliber NC Trek 12-mm balloon, I predilated the lesion from the ostium to the proximal portion. I then deployed a 2.25-caliber, 18-mm long Xience stent into the diagonal branch, and the proximal portion of the stent was placed at the ostium. Excellent angiographic result was achieved. I then went back with a 3.5-caliber NC Trek balloon of 8-mm length and dilated the proximal portion of the LAD stent. Excellent angiographic result was achieved. The patient had chest pain and precordial ST elevation with LAD dilatations. The patient had mild chest discomfort at the end of the procedure. She was hemodynamically stable. The small septal branch was occluded. Excellent angiographic result was achieved of both the LAD and diagonal. Results were discussed with the patient and family, and she was sent to the room in a stable condition. Circumflex intervention will be performed at a later date. Patient will be on Aspirin and Plavix without interruption fo one year. ESPERANZA / JOCELYN: [id number] / MTDD
[2022-10-16] MEDS: SODIUM CHLORIDE 0.9% 1,000 ML in EMPTY BAG 1 BAG IV SCH (14:40)
[2022-10-16] MEDS: METOPROLOL TARTRATE 25 MG TAB PO SCH (20:10)
[2022-10-16] MEDS ORDERED: ACETAMINOPHEN TAB 325 MG TAB PO PRN (20:40)
[2022-10-16] MEDS ORDERED: ONDANSETRON 4 MG/2 ML VIAL IVP STA (21:27)
[2022-10-17] MEDS: LEVOTHYROXINE 100 MCG TAB PO SCH (06:30)
[2022-10-17] MEDS ORDERED: HEPARIN SODIUM,PORCINE 10,000 UNIT in SODIUM CHLORIDE 0.9% 1,000 ML IRRIGATION PRN (07:00)
[2022-10-17] MEDS ORDERED: HEPARIN SODIUM,PORCINE 2,500 UNIT in SODIUM CHLORIDE 0.9% 250 ML IRRIGATION PRN (07:00)
[2022-10-17] MEDS: SODIUM CHLORIDE 0.9% 1,000 ML in EMPTY BAG 1 BAG IV SCH ×2 (07:35→08:19)
[2022-10-17 08:26] LABS: Basophils % (A) 0 %; Eosinophils # (A) 0.1 k/uL (0-0.7); Eosinophils % (A) 1 %; HCT 41.6 % (34.0-46.0); HGB 14.1 gm/dL (11.4-16.0); Lymphocytes # (A) 2.3 k/uL (1.0-4.8); Lymphocytes % (A) 16 %; MCH 28.8 pg (25.0-35.0); MCHC 33.8 g/dL (31.0-37.0); MCV 85.3 fL (80.0-100.0); Mean Platelet Volume 7.9; Monocytes # (A) 0.7 k/uL (0-1.0); Monocytes % (A) 4 %; Neutrophils # (A) 11.5 k/uL (1.3-7.7); Neutrophils % (A) 78 %; Platelet Count 238 k/uL (150-450); RBC 4.88 m/uL (3.80-5.40); RDW 13.1 % (11.5-15.5); WBC 14.8 k/uL (3.8-10.6)
[2022-10-17] MEDS: ASPIRIN 81 MG PO SCH (08:27)
[2022-10-17] MEDS: METOPROLOL TARTRATE 25 MG TAB PO SCH (08:27)
[2022-10-17] MEDS: CLOPIDOGREL 75 MG TAB PO SCH (08:27)
[2022-10-17] MEDS: SERTRALINE 50 MG TAB PO SCH (08:27)
[2022-10-17] MEDS ORDERED: LOSARTAN 25 MG TAB PO STA (08:31)
[2022-10-17] MEDS ORDERED: METOPROLOL TARTRATE 25 MG TAB PO STA (08:32)
[2022-10-17 08:36] LABS: Calcium 8.5 mg/dL (8.4-10.2); Potassium 3.9 mmol/L (3.5-5.1)
[2022-10-17] MEDS ORDERED: LOSARTAN 25 MG TAB PO SCH (09:00)
--- NOTE | 2022-10-17 11:40 | P.PN ---
Subjective This is a 76 year old female with a past medical history of hypothyroidism, family history of coronary artery disease. She does not follow with a car diologist. We are consulted for chest pain and abnormal troponin. She presents to the ER with complaints of chest pain. Patient states yesterday evening she had symptoms of chest pressure in the center of her chest radiating to her back. Rates it 10/10, intense pressure. She had associated shortness of breath, nausea, vomiting episode and diaphoresis. She took an aspirin, no relief. Within 1 hour her symptoms resolved. She went to see her PCP and was told to go to the emergency department secondary to elevated troponins. She is currently chest pain free. Denies any shortness of breath, lightheadedness, dizziness or palpitations. She denies any history of CAD, MT, stroke, diabetes, hyperten mayank, dyslipidemia. Family history includes her father had CABG in his 40s and stenting, other brother also had an MT, Father had an MT in his 60s. She denies tobacco use. 10/16 Patient underwent cardiac catheterization with Dr. Rowe and underwent PCI to mid LAD and proximal major diagonal branch. Echocardiogram revealed EF of 55%, mild mitral regurgitation, mild tricuspid regurgitation 10/17/2022 Patient seen and examined at bedside, denies any chest pain or shortness of breath. Main complaint is feeling fatigued. Blood pressure 151/77, heart rate 67, afebrile, oxygen saturation is 97% on room air. BUN 13, serum creatinine 0.7 PHYSICAL EXAMINATION Vitals reviewed CONSTITUTIONAL: No apparent distress. HEENT: Neck Supple. No JVD. No carotid bruit. CHEST EXAMINATION: Lungs are clear to auscultation. No chest wall tenderness is noted on palpation or with deep breathing. HEART EXAMINATION: Regular rate and rhythm. S1, S2 heard. No murmurs, gallops or rub. ABDOMEN: Soft, nontender. Positive bowel sounds. EXTREMITIES: 2+ peripheral pulses, no lower extremity edema and no calf tenderness. Right radial cath site, clean dry 2+ pulses, no edema or hematoma noted NEUROLOGIC EXAMINATION: Patient is awake, alert and oriented x3. ASSESSMENT NSTEMI s/p PCI to mid LAD and proximal major diagonal branch on 10/16/2022 History of hypothyroidism Family history of coronary artery disease PLAN Increase losartan 25mg daily Increase metoprolol tartrate 50mg BID Continue dual antiplatelet therapy with aspirin and Plavix and continue statin Increase activity as tolerated Hopefully discharge in the next 24 hours Further recommendations based on clinical course Nurse practitioner note has been reviewed by physician. Signing provider agrees with the documented findings, assessment, and plan of care. Objective - Vital Signs Vital signs: Vital Signs Temp 98.1 F 10/17/22 08:00 Pulse 67 10/17/22 08:00 Resp 18 10/17/22 11:03 BP 151/77 10/17/22 08:00 Pulse Ox 97 10/17/22 08:40 FiO2 21 10/16/22 21:43 Intake & Output 10/16/22 10/17/22 10/17/22 18:59 06:59 18:59 Intake Total 600 118 Output Total 300 Balance 600 -300 118 Weight 91 kg Intake: IV 600 Oral 118 Output: Emesis 300 Other: Voiding Method Toilet # Voids 1 - Labs CBC & Chem 7: 10/17/22 08:08 10/17/22 08:08 Labs: Abnormal Lab Results - Last 24 Hours (Table) 10/17/22 10/17/22 Range/Units 08:08 08:08 WBC 14.8 H (3.8-10.6) k/uL Neutrophils # 11.5 H (1.3-7.7) k/uL Sodium 136 L (137-145) mmol/L Carbon Dioxide 21 L (22-30) mmol/L Glucose 150 H (74-99) mg/dL
--- NOTE | 2022-10-17 11:51 | P.PN ---
Subjective Progress Note Date: 10/17/22 Principal diagnosis: chest pain Hospital Course: Patient is a very pleasant 76-year-old female with a past medical history of hypothyroidism. She presented to the emergency department with a chief complaint of chest pain/pressure and shortness of breath. Patient reports that this began on Saturday and initially began with the sudden onset of severe nausea stating it was like the worst case of morning sickness 10 followed by one episode of emesis consisting strictly bile followed by severe pain/pressure to her midsternal chest radiating into her back accompanied by diaphoresis. Patient reports she took an aspirin and rested and pain seemed to go away but had consistently been waxing and waning over the past couple days. Patient underwent full evaluation in the emergency department. CBC, coags, and CMP showing no significant abnormalities. Troponin elevated at 0.098. EKG showing sinus rhythm and [address] depression in inferior and lateral leads. Chest x-ray negative for acute cardiopulmonary process. Patient was started on IV heparin infusion and admitted under our services with consultation to cardiology. Patient underwent cardiac catheterization, with PCI to mid LAD and proximal major diagonal branch. Echocardiogram revealed EF of 55%, mild TR and MR. Subjective: Patient seen and examined by mikayla hudson acute events overnight. She is still having some chest pressure mostly with exertion. She denies any shortness of breath, abdominal pain, diarrhea, constipation, or urinary complaints. She occasionally does get nauseated as well. Pertinent positives and negatives as discussed above, a complete review of syst ems was performed and all other systems are negative. Vitals Signs Reviewed. General: nontoxic, no distress, appears at stated age Derm: warm, dry Head: atraumatic, normocephalic, symmetric Eyes: EOMI, no lid lag, anicteric sclera Mouth: no lip lesion, mucus membranes moist Cardiovascular: S1S2 reg, no murmur Lungs: CTA bilateral, no rhonchi, no rales , no accessory muscle use Abdominal: soft, nontender to palpation, no guarding, no appreciable organomegaly Ext: no gross muscle atrophy, no edema, no contractures Neuro: CN II-XI grossly intact, no focal neuro deficits Psych: Alert, oriented, appropriate affect Assessment and Plan: NSTEMI CAD Status post PCI to mid LAD and diagonal Hypertension Dyslipidemia -Cardiology following -Telemetry monitoring -Aspirin, Plavix and atorvastatin -Losartan and metoprolol increased -Echocardiogram revealing EF of 55% with mild mitral and tricuspid regurgitation. Hypothyroidism -Continue daily medication regimen with levothyroxine Anxiety -Continue home medications DVT ppx: Subcu heparin Code status: Full code Anticipated discharge place: Home Anticipated discharge time: Likely Tomorrow Objective - Vital Signs Vital signs: Vital Signs Temp 98.1 F 10/17/22 08:00 Pulse 67 10/17/22 08:00 Resp 18 10/17/22 11:03 BP 151/77 10/17/22 08:00 Pulse Ox 97 10/17/22 08:40 FiO2 21 10/16/22 21:43 Intake & Output 10/16/22 10/17/22 10/17/22 18:59 06:59 18:59 Intake Total 600 118 Output Total 300 Balance 600 -300 118 Weight 91 kg Intake: IV 600 Oral 118 Output: Emesis 300 Other: Voiding Method Toilet # Voids 1 - Labs CBC & Chem 7: 10/17/22 08:08 10/17/22 08:08 Labs: Abnormal Lab Results - Last 24 Hours (Table) 10/17/22 10/17/22 Range/Units 08:08 08:08 WBC 14.8 H (3.8-10.6) k/uL Neutrophils # 11.5 H (1.3-7.7) k/uL Sodium 136 L (137-145) mmol/L Carbon Dioxide 21 L (22-30) mmol/L Glucose 150 H (74-99) mg/dL
[2022-10-17 12:37] VITALS: BMI 33.3
[2022-10-17] MEDS: METOPROLOL TARTRATE 50 MG TAB PO SCH ×2 (15:47→21:20)
[2022-10-17] MEDS: HEPARIN SODIUM,PORCINE/PF 5,000 UNIT/0.5 ML SYRINGE SQ SCH (15:47)
[2022-10-17] MEDS: ATORVASTATIN 80 MG TAB PO SCH (21:20)
[2022-10-18] MEDS: HEPARIN SODIUM,PORCINE/PF 5,000 UNIT/0.5 ML SYRINGE SQ SCH ×2 (00:01→08:29)
[2022-10-18 05:05] VITALS: PULSE 70; TEMP 98.6
[2022-10-18 05:05] LABS: Calcium 8.6 mg/dL (8.4-10.2); Potassium 3.8 mmol/L (3.5-5.1)
[2022-10-18] MEDS: LEVOTHYROXINE 100 MCG TAB PO SCH (05:47)
[2022-10-18 08:29] VITALS: BP 109/66; RESP 16
[2022-10-18] MEDS: CLOPIDOGREL 75 MG TAB PO SCH (08:29)
[2022-10-18] MEDS: METOPROLOL TARTRATE 50 MG TAB PO SCH (08:29)
[2022-10-18] MEDS: ASPIRIN 81 MG PO SCH (08:29)
[2022-10-18] MEDS: SERTRALINE 50 MG TAB PO SCH (08:30)
[2022-10-18] MEDS ORDERED: LOSARTAN 25 MG TAB PO SCH (09:00)
[2022-10-18] MEDS: SODIUM CHLORIDE 0.9% 1,000 ML in EMPTY BAG 1 BAG IV SCH ×2 (11:14)
--- NOTE | 2022-10-18 11:34 | P.DS ---
Providers Date of admission: 10/15/22 20:35 Expected date of discharge: 10/18/22 Attending physician: Anand Rojas MD Consults: 10/15/22 20:35 Consult Physician Urgent Consulting Provider: [facility] Consult Reason/Comments: unstable angina Do you want consulting provider notified?: Yes Primary care physician: Stated None Hospital Course: Discharge Diagnosis: NSTEMI COPD Status post PCI to mid LAD and diagonal Hypertension Dyslipidemia Hypothyroidism Anxiety Hospital Course: Patient is a very pleasant 76-year-old female with a past medical history of hypothyroidism. She presented to the emergency department with a chief complaint of chest pain/pressure and shortness of breath. Patient reports that this began on Saturday and initially began with the sudden onset of severe nausea stating it was like the worst case of morning sickness 10 followed by one episode of emesis consisting strictly bile followed by severe pain/pressure to her midsternal chest radiating into her back accompanied by diaphoresis. Patient reports she took an aspirin and rested and pain seemed to go away but had consistently been waxing and waning over the past couple days. Patient underwent full evaluation in the emergency department. CBC, coags, and CMP showing no significant abnormalities. Troponin mildly elevated. EKG showing sinus rhythm and [address] depression in inferior and lateral leads. Chest x-ray negative for acute cardiopulmonary process. Patient was started on IV heparin infusion and admitted under our services with consultation to cardiology. Patient underwent cardiac catheterization, with PCI to mid LAD and proximal major diagonal branch. Patient being discharged on aspirin and Plavix. She also has hypertension, started on losartan. For CAD, also on metoprolol and atorvastatin. Echocardiogram revealed EF of 55%, mild TR and MR. Patient seen and examined at bedside. Vital signs reviewed and stable. General: nontoxic, no distress, appears at stated age Derm: warm, dry Head: atraumatic, normocephalic, symmetric Eyes: EOMI, no lid lag, anicteric sclera Mouth: no lip lesion, mucus membranes moist Cardiovascular: S1S2 reg, no murmur Lungs: CTA bilateral, no rhonchi, no rales , no accessory muscle use Abdominal: soft, nontender to palpation, no guarding, no appreciable organomegaly Ext: no gross muscle atrophy, no edema, no contractures Neuro: CN II-XI grossly intact, no focal neuro deficits Psych: Alert, oriented, appropriate affect A total of 38 minutes of time were spent preparing this complex discharge summary. Patient was discharged on 10/18/22 at 9:53. Patient Condition at Discharge: Stable Plan - Discharge Summary Discharge Rx Participant: No New Discharge Prescriptions: New Clopidogrel [Plavix] 75 mg PO DAILY #90 tab Losartan [Cozaar] 25 mg PO DAILY #30 tab Metoprolol Tartrate [Lopressor] 50 mg PO BID #30 tab Aspirin 81 mg PO DAILY #90 tab Atorvastatin [Lipitor] 80 mg PO HS #30 tab Continue estradioL 0.5 mg PO HS Levothyroxine Sodium [Synthroid] 100 mcg PO DAILY Sertraline [Zoloft] 25 mg PO DAILY Discharge Medication List Levothyroxine Sodium [Synthroid] 100 mcg PO DAILY 10/15/22 [History] Sertraline [Zoloft] 25 mg PO DAILY 10/15/22 [History] estradioL 0.5 mg PO HS 10/15/22 [History] Aspirin 81 mg PO DAILY #90 tab 10/16/22 [Rx] Clopidogrel [Plavix] 75 mg PO DAILY #90 tab 10/16/22 [Rx] Atorvastatin [Lipitor] 80 mg PO HS #30 tab 10/18/22 [Rx] Losartan [Cozaar] 25 mg PO DAILY #30 tab 10/18/22 [Rx] Metoprolol Tartrate [Lopressor] 50 mg PO BID #30 tab 10/18/22 [Rx] Follow up Appointment(s)/Referral(s): Chriss Higgins MD [STAFF PHYSICIAN] - 1 Week None,Stated [Primary Care Provider] - 1-2 days Patient Instructions/Handouts: *Surgery [facility] - After Heart Catheterization - Automation Tender Instructions, After Radial Heart Catheterization (GEN) Activity/Diet/Wound Care/Special Instructions: Cardiology Instructions After Cardiac Catheterization with Stent Placement: 1. Aspirin as anti-platelet therapy - Aspirin lessens the chance of heart attack and stroke. It helps prevent blood clots from forming, allowing the blood to flow more easily. Each day, you will take one 81 mg (non-enteric coated) tablet daily. You will be taking aspirin as a lifelong medication. Do not stop unless instructed by your doctor. 2. Anti-platelet Therapy. -In addition to aspirin, you will take ONE of the following anti-platelet medications daily. This will help prevent a clot from forming in your stent: Plavix (clopidogrel) -You will need to take your anti-platelet medicine every day for 12 months -Please consult your heart doctor before you stop this medicine. -They may want you to continue for a longer period of time. 3. Statins -A statin medication lowers cholesterol levels in the blood. This helps slow the progression of heart disease. - Please take your statin medication as prescribed by your doctor. -You may be taking one of the following statins: Lipitor (atorvastatin) Other Medications: -ACEI/ Angiotensin II Receptor Epi (Losartan- Your medication) - can help your heart work better after a heart attack and decrease the amount of damage from a heart attack -Beta epi.(Your medication: Metoprolol tartrate) Is a medication that protects your heart from stress and can prevent future heart attacks. It can slow your heart rate. It can take weeks for your body to get used to a beta epi. The dose may need to be changed a few times as your body adjusts Do not stop taking these medicines without talking to your doctor. -Take all other medicines as directed by your doctor. Do not take any extra aspirin or ibuprofen. They can increase your risk of bleeding. Many [id number] drugs contain aspirin. If you are unsure about what the drug contains, check with your pharmacist before taking it. -For mild discomfort, you may take plain Tylenol (acetaminophen). Follow dose directions, but do not take more than 4,000 mg of acetaminophen in 24 hours. Contact your doctor right away or go to the nearest hospital Emergency Room if you have: -Severe angina or chest pain. (This may be a sign of a problem with your stent.) -Excessive bruising, blood in urine/stool or black tarry stools. Healthy LifeStyle It is important to keep a heart healthy lifestyle. This can improve your long- term health and decrease your risk for heart attacks. -Managing your blood cholesterol, blood pressure, weight, and stress. -The importance of regular exercise. -Heart Healthy Diet: Include more plants in your diet. Eat lots of fresh vegetables and fresh fruits. Eat good fats: plant based oils, avocado, nuts, beans, legumes. Eat more seafood. Limit Meat. Switch to whole grains. -Avoid fried foods and animal fats and processed meats Follow up with [facility], [facility] [phone] Discharge Disposition: HOME SELF-CARE
== END 2022-10-18 11:27 | disposition home or self-care (01) | DRG 247 ==
LOC: EC 18:49 → 3SCARD 20:35
PROVIDERS: ADMIT Internal Medicine; ATTEND Internal Medicine
PROC: 027135Z Dilation of Coronary Artery, Two Arteries with Two Drug-eluting Intraluminal Devices, Percutaneous Approach (ICD-10-PCS; principal; 2022-10-15)
PROC: 4A023N7 Measurement of Cardiac Sampling and Pressure, Left Heart, Percutaneous Approach (ICD-10-PCS; 2022-10-15)
PROC: B2111ZZ Fluoroscopy of Multiple Coronary Arteries using Low Osmolar Contrast (ICD-10-PCS; 2022-10-15)
DX: I21.4 Non-ST elevation (NSTEMI) myocardial infarction (principal); E03.9 Hypothyroidism, unspecified; I10 Essential (primary) hypertension; I08.1 Rheumatic disorders of both mitral and tricuspid valves; J44.9 Chronic obstructive pulmonary disease, unspecified; I25.110 Atherosclerotic heart disease of native coronary artery with unstable angina pectoris; E78.5 Hyperlipidemia, unspecified; F41.9 Anxiety disorder, unspecified; Z28.311 Partially vaccinated for COVID-19; I25.2 Old myocardial infarction; Z79.890 Hormone replacement therapy; Z79.899 Other long term (current) drug therapy; Z82.49 Family history of ischemic heart disease and other diseases of the circulatory system
CPT/HCPCS: 36415; 71046; 80048; 80053; 80061; 83036; 83735; 84443; 84484; 85025; 85610; 85730; 93005; 93306; 93458; 94760; 96365; 96366; 99291

== ENCOUNTER → 2022-10-15 | Outpatient (CLI) | payer MEDICARE ==
[2022-10-15 17:15] LABS: ALT 22 U/L (4-34); AST 27 U/L (14-36); African American GFR (CKD) 63 (>60 ml/min/1.73 sqM); Albumin 4.7 g/dL (3.5-5.0); Albumin/Globulin Ratio 1.7; Alkaline Phosphatase 88 U/L (38-126); Amylase 63 U/L (30-110); Anion Gap 7 mmol/L; Blood Urea Nitrogen 16 mg/dL (7-17); Carbon Dioxide 29 mmol/L (22-30); Chloride 104 mmol/L (98-107); Creatine Kinase 137 U/L (30-135); Globulin 2.7 g/dL; Glucose 91 mg/dL (74-99); Lipase 72 U/L (23-300); Non-African American GFR(CKD) 55 (>60 ml/min/1.73 sqM); Potassium 4.5 mmol/L (3.5-5.1); Sodium 140 mmol/L (137-145); Total Bilirubin 0.3 mg/dL (0.2-1.3); Total Protein 7.4 g/dL (6.3-8.2)
[2022-10-15 17:21] LABS: Basophils # (A) 0.1 k/uL (0-0.2); Basophils % (A) 1 %; Eosinophils # (A) 0.2 k/uL (0-0.7); Eosinophils % (A) 2 %; HCT 48.2 % (34.0-46.0); HGB 16.1 gm/dL (11.4-16.0); Lymphocytes # (A) 3.5 k/uL (1.0-4.8); Lymphocytes % (A) 37 %; MCH 28.9 pg (25.0-35.0); MCHC 33.4 g/dL (31.0-37.0); MCV 86.5 fL (80.0-100.0); Mean Platelet Volume 8.9; Monocytes # (A) 0.4 k/uL (0-1.0); Monocytes % (A) 4 %; Neutrophils # (A) 5.1 k/uL (1.3-7.7); Neutrophils % (A) 53 %; Platelet Count 244 k/uL (150-450); RBC 5.57 m/uL (3.80-5.40); RDW 13.4 % (11.5-15.5); WBC 9.5 k/uL (3.8-10.6)
[2022-10-15 17:37] LABS: Creatine Kinase MB 1.7 ng/mL (0.0-2.4)
[2022-10-15 17:53] LABS: Troponin I 0.127 ng/mL (0.000-0.034)
== END | disposition home or self-care (01) ==
LOC: LABWHC1 15:13
PROVIDERS: ATTEND Family Medicine
DX: E03.9 Hypothyroidism, unspecified (principal); R07.9 Chest pain, unspecified; R11.0 Nausea
CPT/HCPCS: 36415; 80053; 82150; 82550; 82553; 83690; 83880; 84439; 84443; 84481; 84484; 85025

== ENCOUNTER → 2022-11-09 | Outpatient (CLI) | payer MEDICARE ==
[2022-11-09 13:05] LABS: HCT 42.2 % (34.0-46.0); MCH 28.4 pg (25.0-35.0); MCHC 33.1 g/dL (31.0-37.0); MCV 85.9 fL (80.0-100.0); Platelet Count 248 k/uL (150-450); RBC 4.92 m/uL (3.80-5.40); RDW 13.3 % (11.5-15.5); WBC 8.5 k/uL (3.8-10.6)
[2022-11-09 13:14] LABS: Potassium 4.5 mmol/L (3.5-5.1)
== END | disposition home or self-care (01) ==
LOC: LABWHC1 11:39
PROVIDERS: ATTEND Internal Medicine Interventional Cardiology
DX: Z01.812 Encounter for preprocedural laboratory examination (principal); I25.10 Atherosclerotic heart disease of native coronary artery without angina pectoris; I21.4 Non-ST elevation (NSTEMI) myocardial infarction
CPT/HCPCS: 36415; 80051; 82565; 84520; 85027

== ENCOUNTER 2022-11-13 06:11 | Day surgery (SDC) | payer MEDICARE ==
[2022-11-08 16:22] VITALS: BMI 29.9
[~2022-11-13 06:11] MED LIST: ALPRAZolam 0.25 MG TAB PO PRN; ALPRAZolam 0.5 MG TAB PO PRN; HEPARIN SODIUM,PORCINE 10,000 UNIT in SODIUM CHLORIDE 0.9% 1,000 ML IRRIGATION PRN; HEPARIN SODIUM,PORCINE 2,500 UNIT in SODIUM CHLORIDE 0.9% 250 ML IRRIGATION PRN; NITROGLYCERIN SL TABS 0.4 MG TAB SUBLINGUAL PRN
[2022-11-13] MEDS: SODIUM CHLORIDE 0.9% 1,000 ML in EMPTY BAG 1 BAG IV SCH ×4 (06:47→20:08)
[2022-11-13] MEDS ORDERED: ATORVASTATIN 80 MG TAB PO ONE (07:00)
[2022-11-13] MEDS ORDERED: ASPIRIN 325 MG TAB PO ONE (07:00)
[2022-11-13] MEDS ORDERED: VERAPAMIL 2.5 MG/ML 2 ML AMP ONE (07:20)
[2022-11-13] MEDS: MIDAZOLAM 2 MG/2 ML VIAL IV ONE ×3 (07:22→07:49)
[2022-11-13] MEDS ORDERED: fentaNYL (PF) 50 MCG/ML 2 ML AMP ONE (07:30)
[2022-11-13] MEDS: LIDOCAINE 1% INJ 10MG/ML (5 ML VIAL-PF) SQ ONE ×2 (07:32→07:46)
[2022-11-13] MEDS ORDERED: VERAPAMIL SYRINGE (5 MG/10 ML) INTRAARTER ONE (07:35)
[2022-11-13] MEDS: fentaNYL (PF) 50 MCG/ML 2 ML AMP IV ONE ×2 (07:36→07:46)
[2022-11-13] MEDS ORDERED: HEPARIN SODIUM 1,000 UN/ML (10ML VL) ONE (07:37)
[2022-11-13] MEDS ORDERED: IOPAMIDOL-370 100ML BTL INJ ONE ×2 (08:07→08:18)
[2022-11-13] MEDS ORDERED: NITROGLYCERIN 1000MCG/10ML SYRINGE INTRACORON ONE (08:08)
[2022-11-13] MEDS ORDERED: CLOPIDOGREL 75 MG TAB PO ONE (08:22)
[2022-11-13] MEDS ORDERED: CLOPIDOGREL 75 MG TAB ONE (08:22)
[2022-11-13] MEDS ORDERED: HYDROmorphone 0.5 MG/0.5 ML SYRINGE IVP ONE ×2 (08:30→08:40)
--- NOTE | 2022-11-13 09:08 | CC ---
CARDIAC CATHETERIZATION REPORT PROCEDURE: PTCA and stenting of proximal circumflex marginal with drug-eluting stent. PERFORMED BY: Dr. Trudy Rowe. Moderate conscious sedation time was 51 minutes. The patient was administered Versed. Oxygen saturation, hemodynamics, and EKG were monitored closely. CLINICAL INFORMATION: Mrs. Aubrie Grant is a _[id number]____[id number] lady, who presented to this hospital on October 15 with chest pain, had a troponin elevation, underwent cardiac cath performed by me. Cardiac cath revealed that she had a long LAD lesion and diagonal lesion, both of which were addressed with a stent in the LAD and also in the diagonal in a V format. She also had a circumflex marginal lesion and was brought in for the elective PCI of the significant 85% proximal circumflex marginal lesion. The patient was having symptoms of angina as well. The plan was to perform a coronary angiography from right radial approach, check the patency of LAD and diagonal and then perform PCI of circumflex. Dominant RCA was relatively free of any significant disease based on cardiac cath about 1 month ago. PROCEDURE NOTE: Under local anesthesia and strict aseptic precautions, a 6-Gambian introducer was placed in the right radial artery. I then tried to advance a wire, which went very easily into the ascending aorta. I could not advance the catheter and then I took out the catheter, gave some verapamil assuming there may be some spasm, and I tried to advance again and I had the same difficulty in the forearm. I took an angiogram and noted that there was a hematoma in the forearm just before the elbow and this was the reason I was having difficulty advancing the catheter. I therefore switched over to the right femoral approach. I explained this to the patient in detail and proceeded to perform the procedure from right femoral approach. Under strict aseptic precautions and local anesthesia, a 6-Gambian introducer was placed in the right femoral artery. A JL4 guide catheter of 6-Gambian caliber was used to cannulate the left coronary artery. I performed injections and checked that the LAD and diagonal that were stented before were widely patent with excellent flow. I then turned my attention to the circumflex marginal. A run-through wire was used to cross the lesion. A 2.5 caliber 12 mm long NC Trek balloon was used to pre-dilate the lesion which was calcified and also was located at a very acute angle. There was extreme tortuosity of the circumflex marginal beyond the lesion as well. I advanced and positioned a 3.0 caliber 15 mm Xience stent and deployed this at 12 atmospheres. The patient had chest pain and precordial ST depression. Excellent angiographic result without complication was achieved. The patient received 6000 units of heparin and ACT was 279. She also received 150 mg of Plavix. She was already on aspirin and Plavix on a regular basis, having taken the doses today. The sheath was taken out and Angio-Seal device was used to secure hemostasis. Excellent angiographic result without complication was achieved of the first obtuse marginal branch of circumflex. The LAD and diagonal that were stented about a month ago were widely patent. The patient will be advised to be on aspirin and Plavix without interruption for 12 months. I then went back and took an angiogram from the right radial sheath and noted that the hematoma was less obvious. However, I have advised that we will place a cuff in the right forearm at about [address] some ice over the forearm. The radial sheath was taken out and TR band applied as per protocol. Saturation on fingers of the right hand was 95%. Details of the hematoma in the right forearm were explained to the patient as well as to her , and she was given 0.5 mg of Dilaudid. The pain was very minimal. Angiographically, the first obtuse marginal result was excellent. The patient also had a widely patent LAD and circumflex that were stented before. I expect she will be discharged tomorrow if she remains stable. We will watch the right forearm and the site of hematoma closely. Distal pulses palpable. Saturation of the fingers is 95%. The right groin was clean and dry. She was sent to the room in a stable condition. MMODL / IJN: [id number] / DERECK
[2022-11-13] MEDS: SODIUM CHLORIDE 0.9% 1,000 ML IV SCH (15:13)
[2022-11-13] MEDS ORDERED: ATORVASTATIN 80 MG TAB PO SCH (21:00)
[2022-11-14] MEDS: SODIUM CHLORIDE 0.9% 1,000 ML IV SCH (00:43)
[2022-11-14] MEDS: SODIUM CHLORIDE 0.9% 1,000 ML in EMPTY BAG 1 BAG IV SCH ×2 (00:43→03:51)
[2022-11-14] MEDS ORDERED: LEVOTHYROXINE 100 MCG TAB PO SCH (06:30)
[2022-11-14 06:37] LABS: Basophils # (A) 0.1 k/uL (0-0.2); Basophils % (A) 1 %; Eosinophils # (A) 0.4 k/uL (0-0.7); Eosinophils % (A) 4 %; HCT 38.5 % (34.0-46.0); HGB 12.8 gm/dL (11.4-16.0); Lymphocytes # (A) 1.7 k/uL (1.0-4.8); Lymphocytes % (A) 18 %; MCH 28.5 pg (25.0-35.0); MCHC 33.1 g/dL (31.0-37.0); Mean Platelet Volume 7.8; Monocytes # (A) 0.4 k/uL (0-1.0); Monocytes % (A) 5 %; Neutrophils # (A) 6.4 k/uL (1.3-7.7); Neutrophils % (A) 70 %; Platelet Count 217 k/uL (150-450); RBC 4.48 m/uL (3.80-5.40); RDW 12.9 % (11.5-15.5)
[2022-11-14 06:49] LABS: African American GFR (CKD) 77 (>60 ml/min/1.73 sqM); Anion Gap 6 mmol/L; Blood Urea Nitrogen 14 mg/dL (7-17); Calcium 8.5 mg/dL (8.4-10.2); Carbon Dioxide 24 mmol/L (22-30); Chloride 107 mmol/L (98-107); Glucose 111 mg/dL (74-99); Non-African American GFR(CKD) 67 (>60 ml/min/1.73 sqM); Potassium 4.1 mmol/L (3.5-5.1); Sodium 137 mmol/L (137-145)
[2022-11-14 08:33] VITALS: BP 113/73; PULSE 79; RESP 16; TEMP 98.1
[2022-11-14] MEDS ORDERED: METOPROLOL SUCCINATE (ER) 25 MG TAB.ER.24H PO SCH (09:00)
[2022-11-14] MEDS ORDERED: ASPIRIN 81 MG PO SCH (09:00)
[2022-11-14] MEDS ORDERED: SERTRALINE 25 MG TAB PO SCH (09:00)
[2022-11-14] MEDS ORDERED: CLOPIDOGREL 75 MG TAB PO SCH (09:00)
[2022-11-14] MEDS ORDERED: LOSARTAN 25 MG TAB PO SCH (09:00)
--- NOTE | 2022-11-14 09:54 | DS ---
DISCHARGE SUMMARY DIAGNOSES: 1. Unstable angina. 2. Hypertension. 3. Hypercholesterolemia. HOSPITAL COURSE: Ms. Grant suffered from an acute non ST elevation TN about a month ago and underwent stenting of LAD and diagonal, a complex stenting in a V-shaped fashion with excellent result. She was brought in for elective PTCA of a high obtuse marginal that had 80% to 90% proximal stenosis as it came off from the main circumflex. The dominant RCA was free of significant disease. She was brought in for the procedure electively after due discussion regarding risks, benefits and options. The procedure was performed yesterday from right radial approach initially and I had difficulty advancing the guide catheter and therefore, I took an injection, noted that there was a hematoma in the right brachial area just below the elbow. I switched over and performed procedure from right femoral approach. The previously stented LAD and diagonal were widely patent. I performed stenting of obtuse marginal with a 3.0 caliber 15 mm long drug-eluting stent with excellent result. Post-procedure course was uneventful. Her right radial pulse is palpable, but feeble. Right brachial pulse is good and the right ulnar pulse is good. Saturation in the fingers is over 95%. She is asymptomatic. I am asking would apply some ice to the right elbow area on the medial side. Her hemoglobin is stable. Labs are good. EKG revealed nonspecific ST changes with nondiagnostic inferior Q-waves. She has a nonspecific ST-T changes. Laboratory data is unremarkable. Blood pressure is 118/70, pulse rate is about 72 per minute. No JVD. S1, S2 heard normally. Short systolic murmur at left sternal border. Lungs are clear. Abdomen and lower extremity exam unchanged. Right groin is clean and dry. Right radial pulse is palpable, but feeble. Ulnar pulse is good. Brachial pulse is good. A small hematoma on the right upper extremity on the forearm on the medial aspect just below the elbow. Advised to apply ice to this area. Discharge instructions regarding activity, medications, and diet were given. She will be on aspirin and Plavix without interruption for 1 year. The patient will be discharged today and I will see her this November 16 at 12 noon. Discharge instructions regarding activity, diet and medications were given. Sublingual nitroglycerin prescription was also given. MMODL / IJN: [id number] /
== END 2022-11-14 10:27 | disposition home or self-care (01) ==
LOC: CATHCVL 06:11 → 6NMEDSUR 08:24 → CATHCVL 11-14 10:27
PROVIDERS: ATTEND Internal Medicine Interventional Cardiology
DX: I25.10 Atherosclerotic heart disease of native coronary artery without angina pectoris (principal); I10 Essential (primary) hypertension; E78.5 Hyperlipidemia, unspecified; I21.4 Non-ST elevation (NSTEMI) myocardial infarction; Z82.49 Family history of ischemic heart disease and other diseases of the circulatory system; Z79.82 Long term (current) use of aspirin; Z79.899 Other long term (current) drug therapy
CPT/HCPCS: 80048; 85025; 92929; C9600; C1760; C1887 ×2; C1769 ×4; C1894 ×2; C1874; C1725; J2250; J2001; J3010; J1644; J1170; Q9967

== ENCOUNTER → 2023-03-29 | Outpatient (CLI) | payer MEDICARE ==
[2023-03-29 16:36] LABS: ALT 21 U/L (8-44); AST 22 U/L (13-35); African American GFR (CKD) 56.5 (60.0-200.0); Albumin 4.4 g/dL (3.8-4.9); Albumin/Globulin Ratio 1.83 (1.60-3.17); Alkaline Phosphatase 71 U/L (41-126); BUN/Creat Ratio 15.36 Ratio (12.00-20.00); Blood Urea Nitrogen 16.9 mg/dL (9.0-27.0); Calcium 9.7 mg/dL (8.7-10.3); Carbon Dioxide 27.3 mmol/L (20.0-27.5); Chloride 104 mmol/L (96-109); Chol/HDL Ratio 2.26 Ratio; Globulin 2.4 g/dL (1.6-3.3); Glucose 102 mg/dL (70-110); LDL Cholesterol,Calculated 31.4 mg/dL (0.0-131.0); Non-African American GFR(CKD) 48.7 (60.0-200.0); Potassium 5.1 mmol/L (3.5-5.5); Sodium 141 mmol/L (135-145); Total Protein 6.8 g/dL (6.2-8.2)
== END | disposition home or self-care (01) ==
LOC: LABWHC1 10:49
PROVIDERS: ATTEND Internal Medicine Clinical Cardiac Electrophysiology
DX: I25.10 Atherosclerotic heart disease of native coronary artery without angina pectoris (principal); E78.5 Hyperlipidemia, unspecified; Z95.5 Presence of coronary angioplasty implant and graft
CPT/HCPCS: 36415; 80053; 80061

== ENCOUNTER → 2023-07-17 | Outpatient (CLI) | payer MEDICARE ==
[2023-07-17 16:41] LABS: C Reactive Protein, High Sens 0.609 mg/L (0.000-3.000); LDL Cholesterol,Calculated 14.3 mg/dL (0.0-131.0); VLDL Calculation 16.82 mg/dL (5.00-40.00)
== END | disposition home or self-care (01) ==
LOC: LABWHC1 09:15
PROVIDERS: ATTEND Internal Medicine Clinical Cardiac Electrophysiology
DX: Z95.5 Presence of coronary angioplasty implant and graft (principal); I25.10 Atherosclerotic heart disease of native coronary artery without angina pectoris
CPT/HCPCS: 36415; 80061; 86141

== ENCOUNTER → 2023-08-30 | Outpatient (CLI) | payer MEDICARE ==
[2023-08-30 16:54] LABS: ALT 18 U/L (8-44); AST 21 U/L (13-35); Albumin 4.2 d/dL (3.8-4.9); Alkaline Phosphatase 74 U/L (41-126); BUN/Creat Ratio 15.64 Ratio (12.00-20.00); Blood Urea Nitrogen 17.2 mg/dL (9.0-27.0); Calcium 9.4 mg/dL (8.7-10.3); Carbon Dioxide 26.7 mmol/L (21.6-31.8); Chloride 106 mmol/L (96-109); Globulin 2.1 d/dL (1.6-3.3); Glucose 106 mg/dL (70-110); Potassium 4.5 mmol/L (3.5-5.5); Sodium 142 mmol/L (135-145); Total Bilirubin 0.3 mg/dL (0.3-1.2); Total Protein 6.3 d/dL (6.2-8.2)
== END | disposition home or self-care (01) ==
LOC: LABWHC1 08:51
PROVIDERS: ATTEND Family Medicine
DX: Z00.00 Encounter for general adult medical examination without abnormal findings (principal); I25.10 Atherosclerotic heart disease of native coronary artery without angina pectoris
CPT/HCPCS: 36415; 80053

== ENCOUNTER → 2024-12-03 | Outpatient (CLI) | payer MEDICARE ==
[2024-12-03 15:05] LABS: Basophils # (A) 0.08 X 10*3/uL (0.00-0.10); Basophils % (A) 0.9 %; Eosinophils # (A) 0.29 X 10*3/uL (0.04-0.35); Eosinophils % (A) 3.4 %; HCT 43.5 % (37.2-46.3); HGB 13.6 g/dL (12.0-15.0); Lymphocytes # (A) 2.51 X 10*3/uL (0.90-5.00); Lymphocytes % (A) 29.7 %; MCH 27.2 pg (27.0-32.0); MCHC 31.3 g/dL (32.0-37.0); Mean Platelet Volume 9.8 FL (9.5-12.2); Monocytes # (A) 0.51 X 10*3/uL (0.20-1.00); NRBC Per 100 WBC 0 X 10*3/uL (0.00-0.01); Neutrophils # (A) 5.04 X 10*3/uL (1.80-7.70); Neutrophils % (A) 59.9 %; Platelet Count 210 X 10*3/uL (140-440); RDW 13.5 % (11.5-14.5); WBC 8.44 X 10*3/uL (4.50-10.00)
[2024-12-03 15:22] LABS: ALT 18 U/L (8-44); AST 22 U/L (13-35); Albumin 4.1 g/dL (3.8-4.9); Albumin/Globulin Ratio 1.78 Ratio (1.60-3.17); Alkaline Phosphatase 80 U/L (41-126); Blood Urea Nitrogen 19.3 mg/dL (9.0-27.0); Calcium 9.2 mg/dL (8.7-10.3); Carbon Dioxide 26.4 mmol/L (21.6-31.8); Chloride 105 mmol/L (96-109); Chol/HDL Ratio 1.61 Ratio; Globulin 2.3 g/dL (1.6-3.3); Glucose 107 mg/dL (70-110); LDL Cholesterol,Calculated 19.5 mg/dL (0.0-131.0); Magnesium 1.6 mg/dL (1.5-2.4); Potassium 4.5 mmol/L (3.5-5.5); Sodium 141 mmol/L (135-145); Total Bilirubin 0.4 mg/dL (0.3-1.2); Total Protein 6.4 g/dL (6.2-8.2); VLDL Calculation 14.68 mg/dL (5.00-40.00)
== END | disposition home or self-care (01) ==
LOC: LABWHC1 10:39
PROVIDERS: ATTEND Nurse Practitioner Adult Health
DX: I25.10 Atherosclerotic heart disease of native coronary artery without angina pectoris (principal); E78.5 Hyperlipidemia, unspecified
CPT/HCPCS: 36415; 80053; 80061; 83735; 84443; 85025